=== PATIENT | female | born 1965 ===

== ENCOUNTER → 2024-08-09 | Outpatient (CLI) | payer OTHER ==
[~2024-08-09] MED LIST: IBUPROFEN800 MG PO; ORPH100T PO
== END | disposition home or self-care (01) ==
LOC: RAD 10:55
PROVIDERS: ATTEND Specialist
DX: M54.50 Low back pain, unspecified (principal)

== ENCOUNTER 2025-01-17 07:26 | Outpatient (CLI) | payer OTHER ==
[2025-01-17 08:08] LABS: URINE APPEARANCE Clear; URINE BILIRRUBIN Negative (NEGATIVE); URINE BLOOD Negative; URINE COLOR Yellow; URINE KETONE Negative (NEGATIVE); URINE LEUKOCYTE Negative; URINE NITRATE Negative; URINE PROTEIN Negative (NEGATIVE); URINE UROBILINOGEN 0.2 E.U./dl
[2025-01-17 08:09] LABS: BASO % 1.3 % (0.1-1.2); EOS # 0.51 (0.04-0.54); EOS % 9.3 % (0.7-7.0); LYMPH # 1.82 (1.18-3.74); LYMPH % 33.3 % (19.3-53.1); MEAN PLATELET VOLUME 9.90 fl (9.4-12.4); MONO # 0.50 (0.24-0.82); MONO % 9.2 % (4.7-12.5); NEUT # 2.55 (1.56-6.13); NEUT % 46.7 % (34.0-71.1); RED CELL DISTRIBUTION WIDTH 13.4 % (11.6-14.4)
[2025-01-17 08:12] LABS: URINE BACTERIA 21.5 uL (0.0-1933); URINE EPITHELIAL CELLS 7.3 uL (0.0-38.8); URINE WBC 9.9 uL (0.0-23.2)
[2025-01-17 08:20] LABS: URINE CAST 0.00 uL (0.0-1.40); URINE GLUCOSE >=1000 MG/DL (NEGATIVE); URINE RBC 1.3 uL (0.0-20.8)
[2025-01-17 08:27] LABS: CREATININE URINE RANDOM 99.2 MG/DL (30-125)
[2025-01-17 08:37] LABS: ERYTHROCYTE SEDIMENTATION RATE 6 mm/hr (0-30)
[2025-01-17 09:02] LABS: ALT/SGPT 32 U/L (12-78); AST/SGOT 17 U/L (15-37); BILIRUBIN TOTAL 0.54 mg/dL (0.3-1.2); BUN CREA RATIO 22 (7.0-25.0); CHOL HDL RATIO 2.9 (0-5.0); CREATININE SERUM 0.65 mg/dL (0.55-1.02); GFR 93.62; GLOBULINA 3.4 G/DL (2.4-3.5); GLUCOSE FASTING 137 mg/dL (65-100); HDL 47 mg/dl (40-60); LDL 61 mg/dl (0-130); OSMOLALITY SERUM 289 MOSM/KG (275-295); VLDL 27 (0-39)
== END 2025-01-17 07:36 | disposition home or self-care (01) ==
LOC: LAB 07:26
DX: I10 Essential (primary) hypertension (principal); E11.8 Type 2 diabetes mellitus with unspecified complications; Z13.1 Encounter for screening for diabetes mellitus; Z13.228 Encounter for screening for other metabolic disorders; Z13.220 Encounter for screening for lipoid disorders; Z12.11 Encounter for screening for malignant neoplasm of colon; Z13.89 Encounter for screening for other disorder; R60.0 Localized edema; M79.641 Pain in right hand; R60.9 Edema, unspecified; M79.5 Residual foreign body in soft tissue

== ENCOUNTER → 2025-01-25 09:08 | Outpatient (CLI) | payer OTHER ==
[2025-01-25 10:27] LABS: ob NEGATIVE (NEGATIVE)
== END | disposition home or self-care (01) ==
LOC: LAB 09:08
DX: E11.8 Type 2 diabetes mellitus with unspecified complications (principal); R60.0 Localized edema; M79.641 Pain in right hand; R60.9 Edema, unspecified; Z13.1 Encounter for screening for diabetes mellitus; Z13.228 Encounter for screening for other metabolic disorders; Z13.220 Encounter for screening for lipoid disorders; Z12.11 Encounter for screening for malignant neoplasm of colon; I10 Essential (primary) hypertension; Z13.89 Encounter for screening for other disorder